=== PATIENT | male | born 1995 | race Caucasian/White ===

== ENCOUNTER 2023-02-18 11:45 | Outpatient (CLI) | payer BC | END 2023-02-18 12:00 | disposition home or self-care (01) | LOC: LAB.N 11:45 | PROVIDERS: ATTEND Physician Assistant Medical | DX: J02.9 Acute pharyngitis, unspecified (principal) | CPT/HCPCS: 87070 ==

== ENCOUNTER 2023-09-18 09:55 | Outpatient (CLI) | payer BC ==
--- NOTE | 2023-09-19 09:38 | Mammography Report ---
MALE BILATERAL DIGITAL DIAGNOSTIC MAMMOGRAM 3D/2D: 09/18/2023 CLINICAL: Palpable right breast lump. Baseline. No prior exams were available for comparison. There is asymmetric gynecomastia, right greater than left, in both breasts that correlates with palpa ble abnormality. No significant masses, calcifications, or other findings are seen in either breast. IMPRESSION: BENIGN Asymmetric gynecomastia is present and may be symptomatic. The patient should follow up with his [facility] to discuss possible contributing factors including medication changes, and hormona l or lifestyle factors. Findings and recommendations were conveyed to the patient at time of exam. This exam was interpreted at Station ID: [id number]. NOTE: For mammograms, a report in lay terms will be sent to the patient. Approximately 15% of breast malignancies will not be visualized mammographically. In the management of a palpable breast mass, a negative mammogram must not discourage biopsy of a clinically suspicious lesion. Electronically Signed By: Kelli wu/:09/18/2023 10:25:03 letter sent: No_Letter ACR BI-RADS Category 2: Benign Finding(s) 3342F PARENCHYMAL PATTERN: (F) - The breast(s) demonstrate(s) diffuse fatty replacement. BI-RADS CATEGORY: (2) - 2 Unspecified - other recall n/a LATERALITY: (B)
== END 2023-09-18 09:56 | disposition home or self-care (01) ==
LOC: DI 09:55
PROVIDERS: ATTEND Nurse Practitioner Family
DX: N63.13 Unspecified lump in the right breast, lower outer quadrant (principal); N62 Hypertrophy of breast